=== PATIENT | male | born 1995 | race Caucasian/White ===

== ENCOUNTER 2016-05-08 14:06 | Emergency (ER) | payer BC ==
[2016-05-08 17:37] LABS: Hematocrit 48 % (42-52); Hemoglobin 16.3 g/dl (14.0-18.0); Mean Corpuscular HGB Conc 34 g/dl (31-36); Mean Corpuscular Hemoglobin 28 pg (27-31); Mean Corpuscular Volume 84 fL (80-94); Mean Platelet Volume 8 um3 (7.4-10.4); Red Blood Count 5.75 10^6/ul (4.0-5.4); Red Cell Distribution Width 13 % (10.5-15); White Blood Count 7.6 10^3/ul (3.5-10.8)
--- NOTE | 2016-05-08 17:45 | ED ---
Salvatore Hoang Karl, scribed for Devon Talavera MD on 05/08/16 at 1713 . GI/ HPI - HPI Summary HPI Summary: 20 y/o M presents w/ c/o blood in his stool for the past several days. Pt reported he has been having blood in his stool for the past several days with abd pain and weakness. Pt stated that it started a couple days ago, stopped, and then came back. Pt also stated he is lactose intolerant and had milk products then diarrhea with "quite a bit of blood" in it. Pt stated his last BM was this morning and had no blood. Pt denied any recent travel outside the [place]. Hx: hemorrhoids. - History of Current Complaint Chief Complaint: EDGIBleed Time Seen by Provider: 05/08/16 16:56 Stated Complaint: BLOOD IN STOOL Hx Obtained From: Patient Onset/Duration: Started Days Ago, Atraumatic, Still Present Timing: Intermittent, Lasting Days Severity: Mild Current Severity: Mild Vaginal Bleeding Description: Bright Red Pain Intensity: 4 - abd pain Location of Pain: Diffuse Associated Signs and Symptoms: Positive: Weakness, Blood w/Stool, Diarrhea, Abdominal Pain Aggravating Factor(s): Nothing Alleviating Factor(s): Nothing - Allergy/Home Medications Allergies/Adverse Reactions: Allergies Allergy/AdvReac Type Severity Reaction Status Date / Time almonds Allergy Anaphylatic Uncoded 05/08/16 14:20 Shock PMH/Surg Hx/FS Hx/Imm Hx Previously Healthy: Yes Musculoskeletal History: Denies: Hx Rheumatoid Arthritis, Hx Osteoporosis Infectious Disease History: No Infectious Disease History: Denies: Traveled Outside the [place] in Last 30 Days - Family History Known Family History: Positive: Other - rectal CA - Social History Alcohol Use: None Substance Use Type: Reports: None Hx Tobacco Use: Yes Review of Systems Constitutional: Negative Eyes: Negative ENT: Negative Cardiovascular: Negative Respiratory: Negative Positive: Abdominal Pain, Diarrhea, Other - blood in stool Genitourinary: Negative Musculoskeletal: Negative Skin: Negative Positive: Weakness Psychological: Normal All Other Systems Reviewed And Are Negative: Yes Physical Exam - Summary Physical Exam Summary: VITAL SIGNS: Reviewed. GENERAL: Patient is a well developed and nourished male who is lying comfortable in the stretcher. Patient is not in any acute respiratory distress. HEAD AND FACE: Normocephalic and atraumatic. EYES: PERRLA, EOMI x 2, No injected conjunctiva. EARS: Hearing grossly intact. Ear canals and tympanic membranes are WNL. MOUTH: Oropharynx within normal limits. NECK: Supple, trachea is midline, no adenopathy, no JVD. CHEST: Symmetric, no tenderness at palpation LUNGS: Clear to auscultation bilaterally. No wheezing or crackles. CVS: RRR,, S1 and S2 present, no murmurs or gallops appreciated. ABDOMEN: Soft, non-tender. No signs of distention. Positive bowel sounds. No rebound no guarding, and no masses palpated. No abdominal bruit or pulsations. Rectal exam: positive external hemorrhoids. No gross blood. No melena EXTREMITIES: FROM in all major joints, no edema, no cyanosis or clubbing. NEURO: Alert and oriented x 3. No acute neurological deficits. Speech is normal. SKIN: Dry and warm Triage Information Reviewed: Yes Vital Signs On Initial Exam: Initial Vitals Temp Pulse Resp BP Pulse Ox 99.3 F 116 19 146/81 100 05/08/16 14:16 05/08/16 14:16 05/08/16 14:16 05/08/16 14:16 05/08/16 14:16 Vital Signs Reviewed: Yes Diagnostics - Vital Signs Vital Signs Temp Pulse Resp BP Pulse Ox 05/08/16 16:06 99.5 F 76 17 131/76 100 05/08/16 15:06 99.1 F 98 17 131/82 100 05/08/16 14:16 99.3 F 116 19 146/81 100 - Laboratory Lab Results: Lab Results 05/08/16 Range/Units 17:30 WBC 7.6 (3.5-10.8) 10^3/ul RBC 5.75 H (4.0-5.4) 10^6/ul Hgb 16.3 (14.0-18.0) g/dl Hct 48 (42-52) % MCV 84 (80-94) fL MCH 28 (27-31) pg MCHC 34 (31-36) g/dl RDW 13 (10.5-15) % Plt Count 229 (150-450) 10^3/ul MPV 8 (7.4-10.4) um3 Neut % (Auto) 75.4 (38-83) % Lymph % (Auto) 15.8 L (25-47) % Waller % (Auto) 6.0 (1-9) % Eos % (Auto) 2.4 (0-6) % Baso % (Auto) 0.4 (0-2) % Absolute Neuts (auto) 5.7 (1.5-7.7) 10^3/ul Absolute Lymphs (auto) 1.2 (1.0-4.8) 10^3/ul Absolute Monos (auto) 0.5 (0-0.8) 10^3/ul Absolute Eos (auto) 0.2 (0-0.6) 10^3/ul Absolute Basos (auto) 0 (0-0.2) 10^3/ul Absolute Nucleated RBC 0.01 10^3/ul Nucleated RBC % 0.1 Result Diagrams: 05/08/16 17:30 Lab Statement: Any lab studies that have been ordered have been reviewed, and results considered in the medical decision making process. GIGU Course/Dx - Course Assessment/Plan: 20 y/o M presents w/ c/o blood in his stool for the past several days. Pt reported he has been having blood in his stool for the past several days with abd pain and weakness. Pt stated that it started a couple days ago, stopped, and then came back. Pt also stated he is lactose intolerant and had milk products then diarrhea with "quite a bit of blood" in it. Pt stated his last BM was this morning and had no blood. Hx: hemorrhoids. Rectal exam revealed external hemorrhoids, no fissures and he was tender. Blood work wnl. Guaiac is negative. I believe the episode of rectal bleed was secondary to his rectal hemorrhoids. He is asymptomatic therefore he will be discharged home with F/U of PCP. Patient is hemodynamically stable and A+O x 3. He was given a Rx for Anusol. - Diagnoses Differential Diagnoses - Male: Diverticulosis, Hemorrhoids, Pilonidal Cyst, Pruitis Ani, Rectal Fissure Provider Diagnoses: External hemorrhoid Discharge - Discharge Plan Condition: Stable Disposition: HOME Prescriptions: Hydrocortisone SUPP* [Anusol HC Supp*] 25 mg KS BEDTIME #5 supp Patient Education Materials: Hemorrhoids (ED), Rectal Bleeding (ED) Referrals: No Primary Care Phys,NOPCP [Primary Care Provider] - The documentation as recorded by the scribe, Chase,Kirk accurately reflects the service I personally performed and the decisions made by me, Devon Talavera MD.
[2016-05-08 17:52] LABS: Albumin 5.2 g/dL (3.2-5.2); BUN/Creatinine Ratio 20.8 (8-20); EGFR Non-African American 127.5 (>60); Globulin 3.3 g/dL (2-4); Potassium 3.7 mmol/L (3.5-5.0); Total Bilirubin 0.7 mg/dL (0.2-1.0); Total Protein 8.5 g/dL (6.4-8.9)
[2016-05-08 18:32] VITALS: BP 130/72
== END 2016-05-08 18:31 | disposition home or self-care (01) ==
LOC: ED 14:06
DX: K64.8 Other hemorrhoids (principal); E73.9 Lactose intolerance, unspecified; Z87.891 Personal history of nicotine dependence
CPT/HCPCS: 36415; 80053; 82272; 85025; 85610; 85730; 86850; 86900; 86901; 99282

== ENCOUNTER 2019-01-01 19:20 | Emergency (ER) | payer BC ==
[2019-01-01 19:35] VITALS: BP 89/62
--- NOTE | 2019-01-01 20:04 | UC ---
Skin Complaint HPI - HPI Summary HPI Summary: Patient is a 23yo male presenting after removing a tick from his scalp a half hour before arriving here for antibiotics. Patient states the tick probably attached either yesterday or today. He denies fever, chills, n/v/d. Denies itching or redness of the area. Patient also states he was bitten two other times in the spring by ticks but was never seen for either bite. Patient denies developing a rash from either bite. Denies pastrana's palsy, body or muscle aches. - History of Current Complaint Chief Complaint: UCSkin Stated Complaint: TICK Hx Obtained From: Patient Pain Intensity: 1 - Allergy/Home Medications Allergies/Adverse Reactions: Allergies Allergy/AdvReac Type Severity Reaction Status Date / Time almonds Allergy Anaphylatic Uncoded 01/01/19 19:35 Shock Home Medications: Home Medications Ibuprofen TAB* [Advil TAB*] 400 mg PO PRN 01/01/19 [History] PMH/Surg Hx/FS Hx/Imm Hx Previously Healthy: Yes - Surgical History Surgical History: Yes Surgery Procedure, Year, and Place: WISDOM TEETH - Family History Known Family History: Positive: Other - rectal CA, Non-Contributory - Social History Alcohol Use: None Substance Use Type: Marijuana Smoking Status (MU): Never Smoked Tobacco - Immunization History Vaccination Up to Date: Yes Review of Systems All Other Systems Reviewed And Are Negative: No Constitutional: Positive: Negative. Negative: Fever, Chills Skin: Positive: Other - tick bite on scalp. Negative: Rash Respiratory: Positive: Negative Cardiovascular: Positive: Negative Gastrointestinal: Positive: Negative Neurological: Negative: Headache Physical Exam Triage Information Reviewed: Yes Appearance: Well-Appearing, No Pain Distress, Well-Nourished Vital Signs: Initial Vital Signs Temp 98.3 F 01/01/19 19:32 Pulse 98 01/01/19 19:32 Resp 16 01/01/19 19:32 BP 89/62 01/01/19 19:32 Pulse Ox 100 01/01/19 19:32 Vital Signs Reviewed: Yes Eyes: Positive: Conjunctiva Clear ENT: Positive: Hearing grossly normal Neck: Positive: Supple Respiratory: Positive: No respiratory distress Neurological: Positive: Alert Psychological: Positive: Age Appropriate Behavior Skin Exam: Normal - no erythema noted on scalp Skin: Positive: Other - unable to visulaize where the tick bite his scalp Course/Dx - Course Course Of Treatment: Patient dispensed prophylactic dose of doxycycline to take home because he has not eaten yet tonight. Also spoke with Dr. Beckett about the patient's case and he agreed to the one time prophylactic dose as well. Patient instructed to follow up with PCP if he develops rash or other symptoms including arthalgia and myalgias. Patient voiced understanding and agreed to the treatment plan. - Diagnoses Provider Diagnosis: Tick bite of scalp Discharge ED - Sign-Out/Discharge Documenting (check all that apply): Patient Departure All imaging exams completed and their final reports reviewed: No Studies - Discharge Plan Condition: Stable Disposition: HOME Patient Education Materials: Tick Bite (ED) Referrals: Yeyo Hardy MD [Primary Care Provider] - If Needed Additional Instructions: As discussed, you received a one time dose of doxycycline to prevent Lyme disease after your tick bite. No further treatment is necessary at this time. Follow up with your primary care provider if you experience a rash, fever, or chills. - Billing Disposition and Condition Condition: STABLE Disposition: Home - Attestation Statements Provider Attestation: Per institutional requirements, I have reviewed the chart, however, I was not consulted specifically or made aware of this patient by the midlevel provider. I did not personally evaluate, interact with , or disposition this patient.
[2019-01-01] MEDS ORDERED: DOXYcycline CAP(*) 100 MG PO ONE (20:13)
== END 2019-01-01 20:36 | disposition home or self-care (01) ==
LOC: UCEAST 19:20
DX: S00.06XA Insect bite (nonvenomous) of scalp, initial encounter (principal); Z91.018 Allergy to other foods; W57.XXXA Bitten or stung by nonvenomous insect and other nonvenomous arthropods, initial encounter; Y92.9 Unspecified place or not applicable
CPT/HCPCS: 99212; A9270-GY; G0463